=== PATIENT | female | born 1950 | race Caucasian/White ===

== ENCOUNTER 2016-08-02 15:07 | Emergency (ER) | payer OTHER ==
[~2016-08-02] VITALS: Ht 165.1 cm; Wt 104.3 kg
[2016-08-02 15:14] VITALS: BP 169/94
--- NOTE | 2016-08-02 16:07 | ED GENERAL ADULT ---
History of Present Illness General Chief Complaint: General Adult Stated Complaint: PT HAD REACTION TO SOMETHING SHE ATE Source: patient Exam Limitations: no limitations Vital Signs & Intake/Output Vital Signs & Intake/Output Vital Signs Date Time Temp Pulse Resp B/P Pulse O2 O2 Flow FiO2 Ox Delivery Rate 08/02 1514 97.4 90 18 169/94 98 Room Air Allergies Coded Allergies: ephedrine (HEART RACES 08/02/16) Reconcile Medications Amoxicillin 500 MG TABLET 1 TAB PO TID dental pain Ascorbic Acid (Vitamin C) (Unknown Strength) TABLET (Unknown Dose) PO DAILY SUPPLEMENT (Reported) Cholecalciferol (Vitamin D3) (Vitamin D) (Unknown Strength) TABLET (Unknown Dose) PO DAILY SUPPLEMENT (Reported) Levothyroxine Sodium 175 MCG TABLET 1 TAB PO DAILY THYROID (Reported) Magnesium Oxide (Magnesium) (Unknown Strength) CAPSULE (Unknown Dose) PO DAILY SUPPLEMENT (Reported) Turmeric Root Extract (Turmeric) (Unknown Strength) CAPSULE (Unknown Dose) PO DAILY SUPPLEMENT (Reported) Triage Note: REPORTS SHE EAT A BAGEL WITH CREAM CHEESE AROUND NOON TIME AND SHORTLY THEREAFTER SHE BEGAN EXPERIENCING RIGHT JAW PAIN AND SWELLING. SHE ALSO REPORTS CHRONIC LOW BACK PAIN AND INTERMITTENT CHEST PAIN FOR OVER ONE MONTH. SHE WAS EVALUATED AT THE URGENT CARE WHERE AN EKG WAS PERFROMED AND SHE WAS RECOMMENDED TO BE EVALUATED AT THE ED. Triage Nurses Notes Reviewed? yes Onset: Abrupt Duration: hour(s):, improved Timing: recent history Injury Environment: home No Modifying Factors: none HPI: 65-year-old female comes into emergency room for further evaluation of swelling to the right side of her face that began after she ate a cream cheese bagel [employer]. Patient reports that she's been experiencing right-sided tooth pain for quite some time. She denies any tongue swelling rash. Denies any difficulty breathing. Patient went to the walk-in clinic and they sent her here for further evaluation. She reported that when they asked that she was having any chest pain she says that she gets chest pain sometimes intermittently but denies any pain currently. Past History Travel History Traveled to [place] past 21 day No Medical History Any Pertinent Medical History? see below for history Cardiovascular: hypertension Endocrine: hypothyroidism Surgical History Surgical History: non-contributory Psychosocial History What is your primary language [place] Tobacco Use: Never used Family History Hx Contributory? No Review of Systems Review of Systems Constitutional: Reports: no symptoms. EENTM: Reports: see HPI. Respiratory: Reports: no symptoms. Cardiovascular: Reports: no symptoms. GI: Reports: no symptoms. Genitourinary: Reports: no symptoms. Musculoskeletal: Reports: no symptoms. Skin: Reports: see HPI. Neurological/Psychological: Reports: no symptoms. Hematologic/Endocrine: Reports: no symptoms. Immunologic/Allergic: Reports: no symptoms. All Other Systems: Reviewed and Negative Physical Exam Physical Exam General Appearance: well developed/nourished, no apparent distress, alert, awake Head: atraumatic, normal appearance Eyes: Bilateral: normal appearance, EOMI. Ears, Nose, Throat: normal pharynx, normal ENT inspection, hearing grossly normal, tenderness right upper tooth, preauricular lymphadenopathy right ear Neck: normal inspection, full range of motion Respiratory: normal breath sounds, no respiratory distress Cardiovascular: regular rate/rhythm Back: normal inspection Extremities: normal inspection, normal range of motion Neurologic/Psych: awake, alert, oriented x 3, normal gait, normal mood/affect Skin: intact, normal color Core Measures ACS in differential dx? Yes CVA/TIA Diagnosis: No Severe Sepsis Present: No Septic Shock Present: No Progress Differential Diagnoses I considered the following diagnoses in my evaluation of the patient: Allergic reaction, dental infection, parotitis, strep, anaphylaxis Plan of Care: Orders Procedure Date/time Status TROPONIN LEVEL 08/02 1559 Complete COMPREHENSIVE METABOLIC PANEL 08/02 1559 Complete CBC WITHOUT DIFFERENTIAL 08/02 1559 Complete EKG 08/02 1521 Active Laboratory Tests 08/02/16 1612: Anion Gap 12, Estimated GFR > 60, BUN/Creatinine Ratio 26.3 H, Glucose 118 H, Calcium 9.7, Total Bilirubin 0.6, AST 24, ALT 34, Alkaline Phosphatase 68, Troponin I < 0.01, Total Protein 8.0, Albumin 4.4, Globulin 3.6, Albumin/ Globulin Ratio 1.2, CBC w Diff NO MAN DIFF REQ, RBC 4.84, MCV 86.5, MCH 28.7, RDW 13.4, MPV 8.3, Gran % 63.3, Lymphocytes % 28.5, Monocytes % 5.0, Eosinophils % 2.6, Basophils % 0.6, Absolute Granulocytes 8.9 H, Absolute Lymphocytes 4.0 H, Absolute Monocytes 0.7 H, Absolute Eosinophils 0.4, Absolute Basophils 0.1, PUBS MCHC 33.2 Initial ED EKG: normal intervals, normal p-waves, normal QRS complex, normal sinus rhythm, rate (78) Comments: 08/02/2016 5:45:16 PM Patient clinically looks well. Nontoxic-appearing. In no apparent distress. There is no signs of allergic reaction or anaphylaxis. Patient likely had a acute stone in the parotid duct causing an obstruction that caused the swelling or this could be dental related. Patient started on amoxicillin. Swelling has improved by itself the patient reports. Patient was encouraged to use sour candies at home and referred to dentist. Case discussed with Dr. Tapia. Patient did not come in with primary complaints of chest pain. This was only picked up oin review of systems at urgent care center and she has no complaints of chest pain currently. Patient reports that she's had some pain intermittently but none today. EKG within normal limits and a normal troponin. Patient can follow -up with her primary care doctor for further evaluation if chest pain symptoms persist. Departure Departure Disposition: HOME OR SELF CARE Condition: Stable Clinical Impression Primary Impression: Pain, dental Secondary Impressions: Intermittent chest pain, Parotitis Referrals: MEAGAN SIMMONS,Sarah PAK (PCP/Family) Additional Instructions: Take amoxicillin as prescribed. 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 F/U with dentist. return if any other concerns/worsening of symptoms. Go over results with primary care dr. If you cotninue to have chest pain you will ened to see a heading and priming tool setter for futher evaluation. Departure Forms: Customer Survey General Discharge Information Prescriptions: Current Visit Scripts Amoxicillin 1 TAB PO TID #21 TAB Critical Care Note Critical Care Note Critical Care Time: non-applicable
[2016-08-02 16:22] LABS: ABSOLUTE BASOPHIL COUNT 0.1 /CUMM (0.0-0.2); ABSOLUTE EOSINOPHIL COUNT 0.4 /CUMM (0.0-0.7); ABSOLUTE GRANULOCYTE CT 8.9 /CUMM (1.4-6.5); ABSOLUTE MONOCYTE COUNT 0.7 /CUMM (0.10-0.60); BASOPHIL % 0.6 % (0.0-2.0); EOSINOPHIL % 2.6 % (0-5); GRANULOCYTE % 63.3 % (42.2-75.2); HEMATOCRIT 41.8 % (37-47); MEAN CORPUSCULAR HGB 28.7 PG (27.0-31.0); MEAN CORPUSCULAR HGB CONC 33.2 G/DL (33.0-37.0); MEAN CORPUSCULAR VOLUME 86.5 FL (81.0-99.0); MEAN PLATELET VOLUME 8.3 FL (7.4-10.4); PLATELET COUNT 289 /CUMM (130-400); RBC DISTRIBUTION WIDTH 13.4 % (11.5-14.5); RED BLOOD CELL CT 4.84 /CUMM (4.20-5.40); WHITE BLOOD CELL COUNT 14.1 /CUMM (4.8-10.8)
[2016-08-02] MEDS ORDERED: LEVOTHYROXINE175 MCG PO (17:03)
[2016-08-02] MEDS ORDERED: TURMERIC500 M1 PO (17:04)
[2016-08-02] MEDS ORDERED: VITAMIN C250 M3 PO (17:04)
[2016-08-02] MEDS ORDERED: VITAMIN D2000 UNI1 PO (17:04)
[2016-08-02] MEDS ORDERED: MAGNESIUM400 M1 PO (17:05)
[2016-08-02] MEDS ORDERED: AMOXICILLIN500 M3 PO (17:14)
== END 2016-08-02 17:20 ==
LOC: ERH 15:07
PROVIDERS: Physician Assistant Medical
DX: K08.89 Other specified disorders of teeth and supporting structures (principal); R07.9 Chest pain, unspecified; K11.20 Sialoadenitis, unspecified
CPT/HCPCS: 93005; 93010